=== PATIENT | female | born 2000 | race Caucasian/White ===

== ENCOUNTER 2022-05-29 20:23 | Emergency (ER) | payer BC ==
[~2022-05-29] VITALS: Ht 162.6 cm; Wt 63.5 kg
--- NOTE | 2022-05-29 20:52 | NUR ---
PATIENT [id number] C/O RIGHT LOWER BACK PAIN X 0830 PER PT HX OF KIDNEY STONE. PATIENT IS A/O X 4, RR EVEN AND UNLABORED, NO SOB NOTED. PATEINT TAKEN TO ER BED 10. PATIENT CONNECTED TO MONITORS.
[2022-05-29] MEDS ORDERED: KETOROLAC TROMETHAMINE 15 MG/ML VIAL ONE (20:56)
[2022-05-29] MEDS ORDERED: MORPHINE SULFATE INJ 2 MG/ML DISP.SYRIN ONE (20:58)
[2022-05-29] MEDS ORDERED: IV NS 0.9% 500 ML BAG IV ONE (21:00)
[2022-05-29] MEDS ORDERED: KETOROLAC TROMETHAMINE INJ 30 MG/ML VIAL IV ONE (21:00)
[2022-05-29] MEDS ORDERED: MORPHINE SULFATE INJ 2 MG/ML DISP.SYRIN IV ONE (21:00)
[2022-05-29 21:01] VITALS: BP 125/72
--- NOTE | 2022-05-29 21:07 | NUR ---
PATIENT SIGNED WAIVER
--- NOTE | 2022-05-29 21:09 | NUR ---
URINE COLLECTED A D SENT TO LAB
--- NOTE | 2022-05-29 21:09 | NUR ---
BLOOD COLLECTED AND SENT TO LAB
--- NOTE | 2022-05-29 21:26 | NUR ---
PT BACK FROM CT
[2022-05-29 21:29] LABS: BASOPHILS # (AUTO) 0.1 K/uL (0.0-0.2); BASOPHILS % (AUTO) 0.8 % (0.0-2.0); EOSINOPHILS % (AUTO) 0.3 % (0.0-6.0); HEMATOCRIT 40 % (33-45); HEMOGLOBIN 13.9 g/dL (11.5-14.8); LYMPHOCYTES # (AUTO) 2.3 K/uL (0.8-4.8); LYMPHOCYTES % (AUTO) 25.3 % (20.0-44.0); MEAN CORPUSCULAR HGB CONC 35 g/dl (31.0-36.0); MEAN CORPUSCULAR VOLUME 85 fL (82-100); MONOCYTES # (AUTO) 0.9 K/uL (0.1-1.30); MONOCYTES % (AUTO) 9.4 % (2.0-12.0); NEUTROPHILS # (AUTO) 5.9 K/uL (1.8-8.9); NEUTROPHILS % (AUTO) 64.2 % (43.0-81.0); PLATELET COUNT (AUTO) 312 K/uL (150-450); RED BLOOD CELL COUNT(AUTO) 4.73 MIL/uL (4.0-5.2); WHITE BLOOD COUNT (AUTO) 9.2 K/uL (4.3-11.0)
[2022-05-29 21:38] LABS: BILIRUBIN,URINE NEGATIVE (NEGATIVE); COLOR,URINE YELLOW (YELLOW); LEUKOCYTE ESTERASE ,URINE NEGATIVE (NEGATIVE); NITRITE, URINE NEGATIVE (NEGATIVE); PROTEIN,URINE NEGATIVE (NEGATIVE); UGLUCOSE NEGATIVE (NEGATIVE); UROBILINOGEN,URINE 0.2 EU/dL (0.2)
[2022-05-29 21:40] LABS: BACTERIA,URINE None seen /HPF (None Seen); RBC,URINE 0-2 /HPF (0-2); SQUAMOUS EPITHELIAL CELL,UR 0-2 /HPF (None Seen); WBC,URINE 0-2 /HPF (0-3)
[2022-05-29 21:41] LABS: CALCIUM, SERUM 9.7 mg/dL (8.5-10.1); CREATININE 1.1 mg/dL (0.6-1.3); POTASSIUM 3.4 mmol/L (3.5-5.1)
[2022-05-29 21:47] LABS: BILIRUBIN,DIRECT 0.2 mg/dL (0.0-0.2); BILIRUBIN,TOTAL 0.9 mg/dL (0.2-1.0); TOTAL PROTEIN, SERUM 7.8 g/dL (6.4-8.2)
[2022-05-29] MEDS ORDERED: CYCL5TAB PO (22:31)
[2022-05-29] MEDS ORDERED: NAPR-1192 PO (22:31)
[2022-05-29] MEDS ORDERED: CYCLOBENZAPRINE 10 MG TABLET ONE (23:17)
[2022-05-29] MEDS ORDERED: CYCLOBENZAPRINE 10 MG TABLET PO ONE (23:30)
--- NOTE | 2022-05-29 23:34 | NUR ---
Patient discharged to home in stable condition. Written and verbal after care instructions given. Patient verbalizes understanding of instruction.
== END 2022-05-30 | disposition home or self-care (01) ==
LOC: ER 20:29
DX: S39.012A Strain of muscle, fascia and tendon of lower back, initial encounter (principal); Z87.442 Personal history of urinary calculi; X58.XXXA Exposure to other specified factors, initial encounter; Y93.89 Activity, other specified; Y92.89 Other specified places as the place of occurrence of the external cause; Y99.8 Other external cause status
CPT/HCPCS: 99284; 72131; 96374; 96375; 74176; 85025; 80048; 87086; 83690; 80076; 84703; 81001; 36415; J7040; J2270; J1885